=== PATIENT | male | born 1965 | race Caucasian/White ===

== ENCOUNTER 2021-08-08 16:21 | Emergency (ER) | payer OTHER, SELFPAY ==
--- NOTE | 2021-08-08 16:29 | ED.SKABFB ---
HPI - Skin/Abscess/Foreign Bdy General Chief complaint: Skin/Abscess/Foreign Body Stated complaint: cyst on left wrist Time Seen by Provider: 08/08/21 16:50 Source: patient Mode of arrival: ambulatory Limitations: no limitations History of Present Illness HPI narrative: Mr. Bansal is a 56-year-old male patient presenting to the clinic today with a cyst to the left volar ulnar side of wrist that is been ongoing x1 month. He reports that the cyst has become more bothersome to him. He would like to see about getting it drained. He denies any numbness or tingling. Related Data Home Medications Medication Instructions Recorded Confirmed lisinopril 10 mg PO DAILY 08/08/21 08/08/21 Allergies Allergy/AdvReac Type Severity Reaction Status Date / Time No Known Allergies Allergy Verified 08/08/21 16:52 Review of Systems Review of Systems: Pertinent positives per HPI. Patient denies any fever, chills, rash, headache, visual changes, dizziness, cough, runny nose, sore throat, shortness of breath, chest pain, palpitations, nausea, vomiting, diarrhea, constipation, abdominal pain, or any urinary issues. PMFSH Comments At the time of my signature, I reviewed and agree with the nursing past medical, surgical, social, and family history. There is no relevant family history pertinent to the patient complaint. Exam Narrative: General: Well-developed, well nourished, in no apparent distress Head: Normocephalic, atraumatic. Cardio: Regular rate and rhythm, s1 and s2 normal, no murmur appreciated. Resp: Clear to auscultation bilaterally, no rhonchi, rales, wheezing or rubs. Musculoskeletal: No deformity, mild tender to palpation over cystlike structure to the left ulnar volar aspect of the left wrist, cyst is approximately grape sized, attempted aspiration of cyst and scant amount of blood returned without any cystlike aspirate content, grossly normal range of motion, muscle strength strong and equal, peripheral pulse strong, no edema, no cyanosis, normal gait and station Course Course Emergency Course: Portions of this record may have been created with voice recognition software. Level of Care: Express Care Visit Vital Signs Vital signs: Vital signs reviewed Procedures Joint Aspiration/Injection Joint Asp./Inject. 1: Joint Aspiration Date: 08/08/21 Side of body: left Joint Aspirated: wrist/hand Ultrasound Guidance: No Skin Prep: other (Alcohol) Needle Size Used: Other (21-gauge) Fluid Obtained: bloody Total fluid obtained (mL): 0 Patient Tolerated Procedure: well Complications: unable to obtain fluid Additional Comments: Verbal consent obtained for aspiration of ganglion cyst to the left ulnar wrist. Risks and benefits explained and patient voiced understanding. Explained to the patient that it is not recommended to do steroid injection of ganglion cyst per up-to-date guidelines. Cleansed area with alcohol and attempted aspiration of cyst using a 21-gauge needle. Scant amount of blood return without any cystlike contents. Patient tolerated procedure well. MDM - Skin/Abscess/Foreign Bdy MDM Narrative Medical decision making narrative: At the time of visit patient is resting comfortably on the exam table. Has a ganglion cyst to the volar ulnar aspect of the left wrist. Attempted aspiration using a 21-gauge needle with scant amount of blood return without any cystlike aspirate contents. Bleeding was controlled and ION and a Band-Aid was applied. Recommend follow-up with PCP for possible Ortho referral to have this surgically removed and patient voiced understanding and agrees with treatment plan. Differential Diagnosis Differential diagnosis: Likely abscess of skin or subcutaneous tissue and other (Ganglion cyst) Discharge Plan Discharge Clinical Impression: Ganglion cyst Patient Disposition: Home, Self-Care Condition: Stable Instructions: Ganglion
[2021-08-08 16:41] VITALS: BP 159/89; PULSE 78; RESP 20; TEMP 36.7; O2SAT 96
== END 2021-08-08 17:11 | disposition home or self-care (01) ==
PROVIDERS: Emergency Provider Nurse Practitioner Family; PCP Hospitalist
DX: M67.432 Ganglion, left wrist (principal); I10 Essential (primary) hypertension
CPT/HCPCS: 10160; 99212; G0463